=== PATIENT | female | born 1970 | race Caucasian/White ===

== ENCOUNTER → 2018-12-29 | Outpatient (CLI) | payer OTHER ==
[2018-12-29 09:17] LABS: BASO # 0.1 (0.0-0.2); EOS # 0.1 (0.0-0.7); EOS % 1.9 % (0-4.0); GRAN # 4.2 (1.4-6.5); GRAN % 66.3 % (42.2-75.2); HEMATOCRIT 39.6 % (37.0-47.0); HEMOGLOBIN 13.8 g/dl (12.5-16.0); LYMPH # 1.5 (1.2-3.4); LYMPH % 23.5 % (20.0-51.0); MEAN CELL VOLUME 89 fl (80.0-100.0); MEAN CORPUSCULAR HEMOGLOBIN 31 pg (27.0-31.0); MEAN CORPUSCULAR HGB CONC 35 g/dl (33.0-37.0); MONO # 0.4 (0.1-0.6); PLATELET COUNT 357 K/mm3 (130-400); RED BLOOD COUNT 4.43 M/mm3 (4.10-5.30); REDCELL DISTRIBUTION WIDTH-CV 12.1 % (11.5-14.5)
[2018-12-29 09:29] LABS: ALBUMIN 4.3 gm/dL (3.5-5.0); BILIRUBIN,TOTAL 0.3 mg/dL (0.0-1.0); CALCIUM 9.4 mg/dL (8.4-10.2); CHOLESTEROL RISK RATIO 3.4; CREATININE, serum 0.77 (0.52-1.25); POTASSIUM 4.4 mmol/L (3.4-5.0); TOTAL PROTEIN 7.4 gm/dL (6.4-8.2)
== END ==
LOC: COL.LAB 08:54
PROVIDERS: Family Medicine
DX: Z13.6 Encounter for screening for cardiovascular disorders (principal); Z13.0 Encounter for screening for diseases of the blood and blood-forming organs and certain disorders involving the immune mechanism; R03.0 Elevated blood-pressure reading, without diagnosis of hypertension

== ENCOUNTER → 2020-12-13 | Outpatient (CLI) | payer OTHER | LOC: COL.RAD 07:01 | DX: M48.061 Spinal stenosis, lumbar region without neurogenic claudication (principal); M51.26 Other intervertebral disc displacement, lumbar region; Z98.890 Other specified postprocedural states | CPT/HCPCS: A9585 ==

== ENCOUNTER → 2021-01-04 | Outpatient (CLI) | payer OTHER | LOC: MHCPAIN 11:49 | DX: M47.817 Spondylosis without myelopathy or radiculopathy, lumbosacral region (principal); M54.18 Radiculopathy, sacral and sacrococcygeal region; M53.3 Sacrococcygeal disorders, not elsewhere classified; M96.1 Postlaminectomy syndrome, not elsewhere classified | CPT/HCPCS: G0463 ==

== ENCOUNTER → 2021-01-23 | Outpatient (CLI) | payer OTHER | LOC: MHCPAIN 08:26 | DX: M47.817 Spondylosis without myelopathy or radiculopathy, lumbosacral region (principal); M53.3 Sacrococcygeal disorders, not elsewhere classified; M54.16 Radiculopathy, lumbar region | CPT/HCPCS: J1100; Q9967 ==

== ENCOUNTER → 2021-02-05 | Outpatient (CLI) | payer OTHER | LOC: MHCPAIN 09:31 | DX: M47.817 Spondylosis without myelopathy or radiculopathy, lumbosacral region (principal); M54.16 Radiculopathy, lumbar region; M96.1 Postlaminectomy syndrome, not elsewhere classified; M53.3 Sacrococcygeal disorders, not elsewhere classified | CPT/HCPCS: G0463 ==

== ENCOUNTER → 2021-09-25 | Outpatient (CLI) | payer OTHER | LOC: COL.RAD 11:48 | DX: M47.814 Spondylosis without myelopathy or radiculopathy, thoracic region (principal); M50.221 Other cervical disc displacement at C4-C5 level; Z98.1 Arthrodesis status | CPT/HCPCS: A9575 ==

== ENCOUNTER → 2022-05-17 | Outpatient (CLI) | payer OTHER | LOC: COL.VAS 12:42 | DX: C50.919 Malignant neoplasm of unspecified site of unspecified female breast (principal); I08.1 Rheumatic disorders of both mitral and tricuspid valves; Z79.899 Other long term (current) drug therapy ==